=== PATIENT | male | born 1945 | race Caucasian/White ===

== ENCOUNTER 2016-08-27 12:29 | Emergency (ER) | payer OTHER ==
[~2016-08-27] VITALS: Ht 195.6 cm; Wt 95.0 kg
[~2016-08-27 12:29] MED LIST: ALLOPURINOL100 MG PO; ASPIRIN EC325 MG PO; ASPIRIN325 MG PO; ATIVAN0.5 MG PO; ATIVAN1 M1 PO; CARVEDILOL6.25 MG PO; DEPAKOTE500 MG PO; DIVALPROEX SOD250 MG PO; FLUOXETINE10 M2 PO; FLUOXETINE10 M3 PO; HYDROCHLORO25 MG/TAB PO; INDOCIN25 MG PO; LISINOPRIL20 MG PO; LISINOPRIL5 MG PO; LOPRESSOR50 MG PO; METOPROL TAR50 MG PO; NALTREXONE50 MG PO; PRADAXA150 MG PO; SIMVASTATIN40 MG PO; VENLAFAXINE HCL75 M1 PO; XARELTO10 MG PO
[2016-08-27 13:29] LABS: HEMATOCRIT 35.7 % (39.0-50.0); HEMOGLOBIN 11.7 g/dl (14.0-18.0); IMMATURE GRANULOCYTES 0.2 % (0.0-1.0); MEAN CORPUSCULAR HGB 31.8 pG CALC (26.0-32.0); MEAN CORPUSCULAR HGB CONC 32.8 g/L CALC (32.0-36.0); NEUT# 2.7 thou/uL (1.82-7.42); RED BLOOD COUNT 3.68 mill/uL (4.70-6.10); RED CELL DISTRI WIDTH 14.7 % (11.5-15.5)
[2016-08-27 13:41] LABS: ALBUMIN 3.8 g/dL (3.2-5.0); ALKALINE PHOSPHATASE 81 u/l (38-126); ANION GAP 17 (6-22 (CALC)); BILIRUBIN, TOTAL 0.5 mg/dL (0.0-1.4); BUN 8 mg/dL (8-23); BUN/CREATININE RATIO 10 (12-20 (CALC)); CALCIUM 8.6 mg/dL (8.4-10.2); CARBON DIOXIDE 23 mmol/l (22-30); CHLORIDE 109 mmol/l (95-108); CREATININE 0.8 mg/dL (0.7-1.3); GFR > 60 ML/MIN (>=60 (CALC)); GFR FOR AFR.AMER. > 60 ML/MIN (>=60 (CALC)); GLUCOSE 157 mg/dL (82-115); POTASSIUM 3.5 mmol/l (3.5-5.1); SGOT/AST 93 u/l (19-48); SGPT/ALT 57 u/l (11-66); SODIUM 146 mmol/l (137-146)
[2016-08-27 13:52] LABS: MYOGLOBIN 46 ng/mL (0 - 121)
[2016-08-27] MEDS ORDERED: ASPIRIN 81 LOW81 MG PO (14:37)
[2016-08-27] MEDS ORDERED: KEFLEX500 MG PO (14:37)
[2016-08-27 14:41] VITALS: BP 140/89
[2016-08-27] MEDS ORDERED: BACTRIM DS1 TAB PO (14:49)
== END 2016-08-27 14:55 | disposition home or self-care (01) | DRG 74 ==
LOC: ED 12:29
PROVIDERS: Emergency Medicine
DX: G62.9 Polyneuropathy, unspecified (principal); I10 Essential (primary) hypertension; S51.812A Laceration without foreign body of left forearm, initial encounter; X58.XXXA Exposure to other specified factors, initial encounter; Z95.0 Presence of cardiac pacemaker

== ENCOUNTER 2016-11-06 16:27 | Emergency (ER) | payer OTHER ==
[~2016-11-06] VITALS: Ht 195.6 cm; Wt 110.0 kg
[~2016-11-06 16:27] MED LIST changes: +ASPIRIN 81 LOW81 MG PO; +BACTRIM DS1 TAB PO; +KEFLEX500 MG PO
[2016-11-06 17:00] LABS: HEMATOCRIT 41.8 % (39.0-50.0); HEMOGLOBIN 13.9 g/dl (14.0-18.0); IMMATURE GRANULOCYTES 0.3 % (0.0-1.0); MEAN CELL VOLUME 101.2 fL CALC (80.0-100.0); MEAN CORPUSCULAR HGB 33.7 pG CALC (26.0-32.0); MEAN CORPUSCULAR HGB CONC 33.3 g/L CALC (32.0-36.0); NEUT# 4.26 thou/uL (1.82-7.42); RED BLOOD COUNT 4.13 mill/uL (4.70-6.10); RED CELL DISTRI WIDTH 18.5 % (11.5-15.5)
[2016-11-06 17:12] LABS: ALBUMIN 4.6 g/dL (3.2-5.0); ALKALINE PHOSPHATASE 57 u/l (38-126); AMYLASE 87 u/l (30-110); ANION GAP 18 (6-22 (CALC)); BILIRUBIN, TOTAL 1.2 mg/dL (0.0-1.4); BUN 10 mg/dL (8-23); BUN/CREATININE RATIO 14 (12-20 (CALC)); CALCIUM 9.7 mg/dL (8.4-10.2); CARBON DIOXIDE 25 mmol/l (22-30); CHLORIDE 105 mmol/l (95-108); CREATININE 0.7 mg/dL (0.7-1.3); GFR > 60 ML/MIN (>=60 (CALC)); GFR FOR AFR.AMER. > 60 ML/MIN (>=60 (CALC)); GLUCOSE 98 mg/dL (82-115); LIPASE 124 u/l (23-300); MAGNESIUM 1.5 mg/dL (1.6-2.3); SGOT/AST 133 u/l (19-48); SGPT/ALT 70 u/l (11-66); SODIUM 144 mmol/l (137-146); TOTAL PROTEIN 8.2 g/dL (6.3-8.2)
[2016-11-06 17:20] LABS: MYOGLOBIN 112 ng/mL (0 - 121)
[2016-11-06] MEDS ORDERED: LIBRIUM25 MG PO (17:35)
[2016-11-06] MEDS ORDERED: ZOFRAN ODT4 MG PO (17:35)
[2016-11-06] MEDS ORDERED: IMODIUM2 MG PO (17:35)
[2016-11-06 19:56] VITALS: BP 145/90
== END 2016-11-06 19:55 | disposition home or self-care (01) | DRG 392 ==
LOC: ED 16:27
PROVIDERS: Emergency Medicine
DX: K52.9 Noninfective gastroenteritis and colitis, unspecified (principal); E83.42 Hypomagnesemia; I10 Essential (primary) hypertension; E78.00 Pure hypercholesterolemia, unspecified; M19.90 Unspecified osteoarthritis, unspecified site; Z95.810 Presence of automatic (implantable) cardiac defibrillator
CPT/HCPCS: J2060